=== PATIENT | male | born 1960 | race Caucasian/White ===

== ENCOUNTER 2021-04-23 18:55 | Emergency (ER) | payer OTHER ==
[2021-04-23 19:50] LABS: BASO # 0.05 (0.02-0.10); EOS # 0.19 (0.04-0.40); HEMATOCRIT 40.4 % (42.0-52.0); HEMOGLOBIN 14.1 g/dL (13.5-18.0); LYMPH# 2.37 (1.50-4.00); MEAN CELL VOLUME 89 fl (78-100); MEAN CORPUSCULAR HEMOGLOBIN 31 pg (27-31); MEAN CORPUSCULAR HGB CONC 35 g/dL (33-37); MEAN PLATELET VOLUME 9.2 fl (7.4-10.4); MONO # 0.87 (0.20-0.80); PLATELET COUNT 216 K/mm3 (130-400); RED BLOOD COUNT 4.56 M/mm3 (4.20-5.60); RED CELL DISTRIBUTION WIDTH 12.3 % (11.5-14.5); WHITE BLOOD COUNT 9.3 K/mm3 (4.8-10.8)
[2021-04-23] MEDS ORDERED: LOPRESSOR 225 MG/TAB PO (19:51)
[2021-04-23] MEDS ORDERED: NORVASC 5MG5 MG/TAB PO (19:51)
[2021-04-23] MEDS ORDERED: CLOPIDOGREL75 M2 PO (19:52)
[2021-04-23] MEDS ORDERED: ZESTRIL5 M1 PO (19:52)
[2021-04-23] MEDS ORDERED: LIPITOR 80MG80 MG PO (19:52)
[2021-04-23] MEDS ORDERED: ASPIRIN 81M81 MG/TA2 PO (19:59)
[2021-04-23 20:02] LABS: ALBUMIN 4.1 g/dL (3.4-4.8); POTASSIUM 3.9 mmol/L (3.5-5.1); SODIUM 133 mmol/L (136-145)
[2021-04-23 20:03] LABS: CALCIUM 8.8 mg/dL (8.3-10.5)
[2021-04-23 20:04] LABS: GLUCOSE 112 mg/dL (75-110); TOTAL PROTEIN 6.6 g/dL (6.2-8.1)
[2021-04-23 20:05] LABS: CARBON DIOXIDE 19 mmol/L (23-31)
[2021-04-23 20:06] LABS: TOTAL BILIRUBIN 1.3 mg/dL (0.2-1.2)
[2021-04-23 20:10] LABS: AST-SGOT 20 U/L (5-34)
[2021-04-23 20:11] LABS: ALT/SGPT 14 U/L (0-55)
[2021-04-23 20:17] LABS: TROPONIN-I < 0.03 ng/mL (<0.030)
[2021-04-23] MEDS ORDERED: FAMOTIDINE20 MG PO (23:04)
[2021-04-23 23:18] VITALS: BP 118/68
== END 2021-04-23 23:18 | disposition home or self-care (01) ==
LOC: ED 18:55
PROVIDERS: Family Medicine
DX: K21.9 Gastro-esophageal reflux disease without esophagitis (principal); I10 Essential (primary) hypertension; E78.5 Hyperlipidemia, unspecified; I25.10 Atherosclerotic heart disease of native coronary artery without angina pectoris; Z79.82 Long term (current) use of aspirin; Z79.02 Long term (current) use of antithrombotics/antiplatelets; Z79.899 Other long term (current) drug therapy